=== PATIENT | female | born 1990 | race Two or more races ===

== ENCOUNTER 2022-01-08 10:46 | Emergency (ER) | payer OTHER ==
[~2022-01-08] VITALS: Ht 160 cm; Wt 84.0 kg
[2022-01-08 12:11] VITALS: BP 143/82
[2022-01-08] MEDS ORDERED: KETOROLAC TROMETH 60MG/2ML VIAL IM ONE (12:30)
[2022-01-08] MEDS ORDERED: IBUP800T27 PO (12:49)
[2022-01-08] MEDS ORDERED: METH750T22 PO (12:49)
== END 2022-01-08 12:57 | disposition home or self-care (01) ==
LOC: ER 10:46
DX: S16.1XXA Strain of muscle, fascia and tendon at neck level, initial encounter (principal); V43.52XA Car driver injured in collision with other type car in traffic accident, initial encounter; Y93.89 Activity, other specified; Y92.410 Unspecified street and highway as the place of occurrence of the external cause; Y99.8 Other external cause status
CPT/HCPCS: 72040; 93005; 96372; 99283; J1885